=== PATIENT | male | born 1955 | race Caucasian/White ===

== ENCOUNTER → 2017-03-16 | Outpatient (CLI) | payer BC ==
[2017-03-16 18:30] LABS: BLOOD UREA NITROGEN 19 mg/dl (7-18)
== END | disposition home or self-care (01) ==
LOC: C.LAB 17:10
PROVIDERS: ATTEND Physician Assistant
DX: R42 Dizziness and giddiness (principal)

== ENCOUNTER → 2017-03-18 | Outpatient (CLI) | payer BC ==
[~2017-03-18] MED LIST: GADAVIST IV PRN
--- NOTE | 2017-03-18 09:59 | DIAGNOSTIC IMAGING REPORT ---
MRI OF THE BRAIN COMBO INTERNAL AUDITORY CANAL PROTOCOL CLINICAL HISTORY: Dizziness and vertigo. Headache. COMPARISON STUDY: CT of the brain dated 09/04/2008. TECHNIQUE: MRI of the brain was performed utilizing various T1 and T2-weighted sequences in the axial, sagittal, and coronal planes. Contrast-enhanced sequences were acquired following the administration of 14 cc of Gadavist. Additional high-resolution imaging was performed through the skull base both pre and postcontrast for further assessment of the internal auditory canals. FINDINGS: Brain parenchyma: There are mild patchy foci of T2 signal abnormality within the subcortical and periventricular white matter. There is no hemorrhage or mass effect. There is no restricted diffusion to suggest acute ischemia. No enhancing mass lesion is identified on the postcontrast images. Campos-white matter differentiation is preserved. No extra-axial fluid collection is seen. The cerebellar tonsils are normal in configuration. Ventricles, sulci, and cisterns: Normal in configuration. Internal auditory canals: No mass lesion is identified within the cerebellopontine angle bilaterally. No mass lesion or abnormal enhancement is identified along the course of the internal artery canals. The middle ear structures are normal in appearance. Pituitary and sella: Unremarkable. Intracranial vasculature: Normal flow voids are maintained at the skull base. Orbits: The bony orbits are grossly intact. Orbital contents are normal in appearance. Sinuses and mastoids: Clear. Calvarium: Unremarkable. Cervical cord: Partially visualized cervical spinal cord is normal in morphology and signal intensity. IMPRESSION: 1. No acute intracranial abnormality. 2. There are mild patchy foci of T2 signal abnormality identified within the subcortical and periventricular white matter. 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 3. Unremarkable MRI assessment of the internal auditory canals. Electronically signed by: Jasper Colon M.D. 03/18/2017 9:58 AM Dictated Date/Time: 03/18/2017 9:52 AM
== END | disposition home or self-care (01) ==
LOC: C.MRI 08:28
PROVIDERS: ATTEND Physician Assistant
DX: R44.2 Other hallucinations (principal); R42 Dizziness and giddiness